=== PATIENT | female | born 1940 | race Caucasian/White ===

== ENCOUNTER 2022-12-06 09:04 | Inpatient (IN) | payer MEDICARE, BC ==
[2022-12-06 10:27] LABS: #Basophils 0.1 thou/uL (0.0-0.2); #Eosinphils 0.2 thou/uL (0.0-0.7); #Lymphocytes 1.5 thou/uL (1.20-3.40); #Monocytes 0.7 thou/uL (0.11-0.59); #Neutrophils 7.5 thou/uL (1.40-6.50); %Basophils 0.9 % (0.0-1.0); %Lymphocytes 15.2 % (21.0-51.0); %Monocytes 7.3 % (0.0-10.0); %Neutrophils 74.7 % (42.0-75.0)
[2022-12-06 10:29] LABS: Hemoglobin 4.6 g/dL (12.0-16.0); Mean Corpuscular HGB CONC 30.8 g/dL (32.0-36.0); Mean Corpuscular Volume 97.6 fl (78.0-98.0); Mean Platelet Volume 7.7 fL (7.4-10.4); Platelet Count 417 10x3/uL (130-400); RBC Distribution Width 16.3 % (11.5-14.5); Red Blood Cell (RBC) Count 1.52 mill/uL (4.20-5.40)
[2022-12-06 10:41] LABS: INR-International Normal Ratio 1.1; Prothrombin Time 14.8 sec (12.0-14.7)
[2022-12-06 10:44] LABS: ALT (SGPT) Less than 7 U/L (8-55); AST (SGOT) 13 U/L (5-34); Albumin 3.5 g/dL (3.4-4.8); Alkaline Phosphatase 60 U/L (40-110); Anion Gap 14 mmol/L (10-20); BUN (Urea Nitrogen) 39 mg/dL (9.8-20.1); Bilirubin, Total 0.3 mg/dL (0.2-1.2); Calc. Creatinine Clearance 0 mL/min (70-130); Carbon Dioxide 20 mmol/L (23-31); Chloride 107 mmol/L (98-107); Estimated GFR 63; Globulin 2.6 g/dL (2.4-3.5); Glucose 114 mg/dL (83-110); Potassium 3.5 mmol/L (3.5-5.1); Protein, Total 6.1 g/dL (5.8-8.1); Sodium 137 mmol/L (136-145)
[2022-12-06] MEDS ORDERED: diphenhydrAMINE 50 MG/ML VIAL ONE (10:49)
[2022-12-06] MEDS ORDERED: Pantoprazole 40 MG VIAL ONE (10:50)
[2022-12-06] MEDS ORDERED: Calcium Gluc 4.6 MEQ/10 ML (100 MG/ML) ONE (10:50)
[2022-12-06] MEDS ORDERED: Acetaminophen 500 MG TAB ONE (10:53)
[2022-12-06] MEDS ORDERED: Pantoprazole 80 MG in Sodium Chloride 0.9% 100 ML IVPB SCH (12:15)
[2022-12-06] MEDS ORDERED: Ondansetron ODT 4 MG TAB PO PRN (12:17)
[2022-12-06] MEDS ORDERED: Calcium Carbonate 500 MG ChewTAB PO PRN (12:17)
[2022-12-06] MEDS ORDERED: Ondansetron PF 4 MG/2 ML Vial IVP PRN (12:17)
[2022-12-06] MEDS ORDERED: Acetaminophen 325 MG TAB PO PRN (12:17)
[2022-12-06] MEDS ORDERED: Electrolyte Replacement Protocol 1 EACH FS SCH (12:30)
[2022-12-06] MEDS ORDERED: Potassium Chloride 20 MEQ TAB PO SCH (13:45)
[2022-12-06 14:32] VITALS: BMI 22.1
[2022-12-06 14:46] LABS: Iron 45 ug/dL (50-170); Iron Binding Capacity, Total 213 mcg/dL (265-497); Magnesium 1.9 mg/dL (1.6-2.6)
[2022-12-06] MEDS ORDERED: Polyethylene Glycol 3350 17 GM Packet PO PRN (17:39)
[2022-12-06] MEDS: Folic Acid 1 MG TAB PO SCH (20:30)
[2022-12-06] MEDS ORDERED: Famotidine 20 MG TAB PO SCH (21:00)
[2022-12-06] MEDS ORDERED: Cyanocobalamin (Vitamin B-12) 1,000 MCG TAB PO SCH (21:00)
[2022-12-06] MEDS ORDERED: Simvastatin 10 MG TAB PO SCH (21:00)
[2022-12-07 05:21] LABS: #Eosinphils 0.3 thou/uL (0.0-0.7); #Lymphocytes 1.6 thou/uL (1.20-3.40); #Monocytes 0.7 thou/uL (0.11-0.59); %Basophils 0.4 % (0.0-1.0); %Eosinophils 3.6 % (0.0-10.0); %Lymphocytes 18.2 % (21.0-51.0); %Monocytes 7.8 % (0.0-10.0); Hemoglobin 9.8 g/dL (12.0-16.0); Mean Corpuscular HGB CONC 34.3 g/dL (32.0-36.0); Mean Corpuscular Hemoglobin 31.7 pg (27.0-31.0); Mean Corpuscular Volume 92.6 fl (78.0-98.0); Mean Platelet Volume 7.7 fL (7.4-10.4); Platelet Count 285 10x3/uL (130-400); RBC Distribution Width 14.2 % (11.5-14.5); White Blood Cell (WBC) Count 8.6 10x3/uL (4.8-10.8)
[2022-12-07 05:29] LABS: ALT (SGPT) Less than 7 U/L (8-55); AST (SGOT) 13 U/L (5-34); Albumin 2.8 g/dL (3.4-4.8); Alkaline Phosphatase 57 U/L (40-110); Anion Gap 13 mmol/L (10-20); BUN (Urea Nitrogen) 30 mg/dL (9.8-20.1); Bilirubin, Total 1.8 mg/dL (0.2-1.2); Calc. Creatinine Clearance 46 mL/min (70-130); Carbon Dioxide 19 mmol/L (23-31); Chloride 111 mmol/L (98-107); Estimated GFR 72; Globulin 2.3 g/dL (2.4-3.5); Glucose 95 mg/dL (83-110); Magnesium 1.8 mg/dL (1.6-2.6); Potassium 4.5 mmol/L (3.5-5.1); Protein, Total 5.1 g/dL (5.8-8.1); Sodium 138 mmol/L (136-145)
[2022-12-07] MEDS ORDERED: Magnesium 2 GM/50 ML(in water) 2 GM in Premix Bag 1 BAG IVPB SCH (09:00)
[2022-12-07 12:14] VITALS: BP 154/71; TEMP 98.7
[2022-12-07] MEDS: Folic Acid 1 MG TAB PO SCH (13:19)
[2022-12-07] MEDS ORDERED: Famotidine 20 MG TAB PO SCH (21:00)
[2022-12-08] MEDS ORDERED: Losartan 25 MG TAB PO SCH (09:00)
== END 2022-12-07 17:35 | disposition home or self-care (01) | DRG 378 ==
LOC: ERS 09:04 → 2NO 11:47
PROVIDERS: ADMIT Internal Medicine; ATTEND Internal Medicine
PROC: 30233N1 Transfusion of Nonautologous Red Blood Cells into Peripheral Vein, Percutaneous Approach (ICD-10-PCS; principal; 2022-12-06)
PROC: 0DJ08ZZ Inspection of Upper Intestinal Tract, Via Natural or Artificial Opening Endoscopic (ICD-10-PCS; 2022-12-07)
DX: K26.4 Chronic or unspecified duodenal ulcer with hemorrhage (principal); D62 Acute posthemorrhagic anemia; Z20.822 Contact with and (suspected) exposure to COVID-19; E78.00 Pure hypercholesterolemia, unspecified; I10 Essential (primary) hypertension; M19.90 Unspecified osteoarthritis, unspecified site; R29.6 Repeated falls; K44.9 Diaphragmatic hernia without obstruction or gangrene; K21.00 Gastro-esophageal reflux disease with esophagitis, without bleeding; Z79.899 Other long term (current) drug therapy
CPT/HCPCS: 36415; 36430; 71045; 80053; 82274; 82728; 83540; 83550; 83735; 84484; 85025; 85046; 85610; 85730; 86850; 86900; 86901; 88305; 93005; C9113; J0610; J1200; J3475; P9016; U0003; U0005